=== PATIENT | female | born 1975 | race Caucasian/White ===

== ENCOUNTER 2018-09-19 08:12 | Day surgery (SDC) | payer OTHER ==
--- NOTE | 2018-09-19 07:35 | ANESTHESIA ---
Pre-Anesthesia VS, & Labs - Diagnosis R shoulder bursitis, rotator cuff tear, biceps tendinitis - Procedure R shoulder arthroscopy Vital Signs: Last Vital Signs Temp 36.2 C L 09/19/18 08:18 Pulse 86 09/19/18 08:18 Resp 16 09/19/18 08:18 BP 126/81 H 09/19/18 08:18 Pulse Ox 100 09/19/18 08:18 Height 5 ft 1 in Body Mass Index 27.3 Height 5 ft 1 in Weight (kg) 74.9 kg Body Mass Index 27.3 - NPO >8 hours - Is Patient ?: Waiver signed Home Medications and Allergies Home Medications: Ambulatory Orders Dextroamphetamine/Amphetamine [Adderall Xr 10 mg Capsule] 10 mg PO 09/09/18 Dextroamphetamine/Amphetamine [Adderall Xr 25 mg Capsule] 25 mg PO 09/09/18 Pantoprazole Sodium [Protonix] 20 mg PO BID 09/09/18 Rizatriptan Benzoate [Rizatriptan] 10 mg PO PRN 09/09/18 Dextroamphetamine/Amphetamine [Adderall Xr 10 mg Capsule] 10 mg PO 09/09/18 Dextroamphetamine/Amphetamine [Adderall Xr 25 mg Capsule] 25 mg PO 09/09/18 Pantoprazole Sodium [Protonix] 20 mg PO BID 09/09/18 Rizatriptan Benzoate [Rizatriptan] 10 mg PO PRN 09/09/18 Allergies/Adverse Reactions: Allergies Allergy/AdvReac Type Severity Reaction Status Date / Time aspirin Allergy Edema Verified 09/09/18 15:34 ibuprofen Allergy Edema Verified 09/09/18 15:34 meperidine HCl * Allergy Rash Verified 09/09/18 15:34 [From Demerol] Penicillins Allergy Unknown Verified 09/09/18 15:34 Anes History & Medical History - Anesthetic History Anesthesia Complications: reports: No previous complications Family history of Anesthesia Complications: Denies Family history of Malignant Hyperthermia: Denies - Medical History Cardiovascular: reports: None Pulmonary: reports: None Gastrointestinal: reports: GERD Urinary: reports: None Musculoskeletal: reports: Other Endocrine/Autoimmune: reports: None Skin: reports: None Smoking Status: Never smoker - Surgical History Eyes Ears Nose Throat (EENT): Tonsil/Adenoidectomy Gynecologic: Tubal ligation Orthopedic: Other Exam General: Alert, Oriented x3, Cooperative Dental: WNL Mouth Openin Fingerbreadth Neck Mobility: Normal Mallampati classification: II Thyromental Distance: 4-6 cm Respiratory: Lungs clear, Normal breath sounds Cardiovascular: Regular rate Neurological: Normal speech Mental/Cognitive Status: Alert/Oriented X3, Normal for patient Cognitive Status: Within normal limits Plan Anesthesia Type: General, Supraclavicular Block Regional Block: Per Surgeon's request for Post Op pain control Consent for Procedure(s) Verified and Reviewed: Yes Code Status: Attempt Resuscitation ASA classification: 1-Healthy patient Is this case an emergency?: No
[~2018-09-19 08:12] MED LIST: CLINDAMYCIN 600 MG/50 ML 50 ML IV ONE
[2018-09-19] MEDS ORDERED: EPINEPHrine 1 MG/ML AMP ONE (08:18)
[2018-09-19] MEDS ORDERED: BUPIVACAINE 0.25%-EPI 1:200000 PF 30 ML VIAL ONE (08:19)
[2018-09-19] MEDS ORDERED: LACTATED RINGERS 1,000 ML IV ONE (09:11)
[2018-09-19] MEDS ORDERED: oxyCODONE 5 MG TABLET PO PRN (09:47)
[2018-09-19] MEDS ORDERED: ONDANSETRON 4 MG/2 ML VIAL IVP PRN (09:47)
[2018-09-19] MEDS ORDERED: GLYCOPYRROLATE 1 MG/5 ML VIAL IVP ONE (10:30)
[2018-09-19] MEDS ORDERED: DEXAMETHASONE 4 MG/ML VIAL IVP ONE (10:30)
[2018-09-19] MEDS ORDERED: MIDAZOLAM 2 MG/2 ML VIAL IVP ONE (10:30)
[2018-09-19] MEDS ORDERED: ONDANSETRON 4 MG/2 ML VIAL IVP ONE (10:30)
[2018-09-19] MEDS ORDERED: fentaNYL 100 MCG/2 ML VIAL IVP ONE (10:30)
[2018-09-19] MEDS ORDERED: LIDOCAINE-MPF 2% 5 ML VIAL IM ONE (10:30)
[2018-09-19] MEDS ORDERED: NEOSTIGMINE 1 MG/1 ML 10 ML MDV IVP ONE (10:30)
[2018-09-19] MEDS ORDERED: PROPOFOL 200 MG/20 ML VIAL IVP ONE (10:30)
[2018-09-19] MEDS ORDERED: ROPIVACAINE 0.5% PF 20 ML AMPULE EP ONE (10:30)
[2018-09-19] MEDS ORDERED: BUPIVACAINE 0.25%-EPI 1:200000 PF 10 ML VIAL SUBQ ONE (12:29)
--- NOTE | 2018-09-19 13:05 | OPERATIVE REPORT ---
Operative Report - General Procedure Date: 09/19/18 Planned Procedure: Right shoulder arthroscopy, rotator cuff debridement, SAD, Open biceps Teno Pre-Op Diagnosis: Right shoulder SLAP tear/biceps tendinitis, impingement, rotator cuff frayi Procedure Performed: Right shoulder arthroscopy, rotator cuff debridement, subacromial decompression, open subpectoral biceps tenodesis Post Op Diagnosis: Right shoulder SLAP tear/biceps tendon tear, subacromial bursitis, articula - Procedure Note Primary Surgeon: PRASAD JAIN Secondary Surgeon: ALBA ERAZO Anesthesia Technique: General ET tube, Regional block Estimated Blood Loss (mL): 15 - Other Other Information/Narrative: DETAILED PROCEDURE: Right shoulder arthroscopy, rotator cuff debridement, subacromial decompression, open subpectoral biceps tenodesis IMPLANTS: Arthrex fibertak x1 POSTOPERATIVE PLAN: 0-2 weeks-Sling at all times. Pendulum exercises 5 times per day. 2-6 weeks-No active flexion of the biceps 6-8 weeks-Active flexion of biceps, light strengthening 8-12 weeks-Gradually increase strengthening focusing on rotator cuff and scapular stabilizers per protocol. 16 weeks and beyond-Introduce dynamic activities. EXAMINATION UNDER ANESTHESIA: ROM: Forward flexion 180, abduction 175, AB ER 90, AB IR 80 Anterior load and shift: 1+ Posterior load and shift: 1+ Inferior sulcus: Negative ARTHROSCOPIC FINDINGS: Rotator interval: Normal Biceps tendon & SLAP: Linear tear of the long head of the biceps tendon, type II SLAP tear with significant fraying Subscapularis: Intact Rotator Cuff: Undersurface fraying of the supraspinatus, and anterior part of the infraspinatus, thickness less than 50% of the footprint HAGL: None Labrum: Intact Glenoid Cartilage: Normal Humeral Head Cartilage: Normal, small area anterior to the bare area denuded of cartilage INDICATION FOR SURGERY: A 43-year-old female with right shoulder pain with activity, pain worse with overhead activity and activities such as throwing. Nonoperative managment failed to resolve symptoms. The risks, benefits, and alternatives were discussed. Risks included pain, bleeding, infection, damage to nearby structures, lack of symptom relief, implant complications, stiffness, need for further surgeries, DVT, PE, stroke, and even . He signed a written consent form. PROCEDURE IN DETAIL: The patient was met in the preoperative holding on the day of the procedure. Operative extremity was signed. Consent was verified. They desired to proceed. Regional anesthesia was obtained in the preoperative area. They were brought to the operating room and surrendered to anesthesia. Once general anesthesia was obtained they were placed in the beach chair position. A padded kidney pad was placed. The head was secured with the neck in a neutral position. A surgical timeout was held to confirm the patient procedure, identity, procedure, laterality, allergies, images, and antibiotics. All were in agreement we proceeded. A standard diagnostic arthroscopy was performed utilizing posterior and anterosuperior portals. The anterosuperior portal was created under direct visualization and localized with a spinal needle. The 7 mm cannula was placed anteriorly. The findings of the diagnostic arthroscopy can be found above. ARTHROSCOPIC SUBACROMIAL DECOMPRESSION: The instruments and cannula were then removed from the glenohumeral joint. The scope trocar was placed in the posterior portal and the acromion was felt. It was then inserted just under the acromion scraping along the bone until the CA ligament was felt. The scope trocar was then brought just lateral to the CA ligament and out the anterior i ncision. The cannula was then brought over the scope trocar arthroscope were inserted. The arthroscope was backed up until the shaver and arthroscope in the subacromial space. I then systemically debrided the bursa using a sucker shaver and radiofrequency ablation wand. A direct lateral incision was made and the bursectomy and decompression was completed through the lateral incision. All soft tissue was debrided from the underside of the acromion and the posterior edge of the CA ligament was lifted. Care was taken to keep the deltoid fascia intact. The rotator cuff was then evaluated and there was no full-thickness tear. Final images were taken. MINI OPEN BICEPS TENODESIS: A 5 cm incision was made near the axillary fold centered over the pectoralis major tendon. Electrocautery was used to obtain hemostasis. The fascia was opened with dissection scissors. Blunt digital dissection was used to identify the intertubercular groove just under the pectoralis major tendon. The long head of the biceps tendon was visualized within this interval. The short head of the biceps was retracted with my finger and the right angle was used to deliver the tendon of the long head of the b iceps out of the wound. A villanueva elevator was then used to debride all synovial tissue from the intertubercular groove. A fibertack was placed high within the groove. Both limbs of the fibertack were pulled on and it was well fixed. I then whipstitched the biceps tendon starting 2 cm proximal to the musculotendinous junction down to the musculotendinous junction and back up to the same 2 cm location with a single limb of the suture tack. The other suture was placed once through the tendon at the 2 cm location. I then cut all excess tendon off. The suture limb that was passed the single time was then pulled on and this reduced the tendon nicely into the groove. The elbow was fully straightened and there was no excess tension on the repair site. I then tied 7 reverse half hitches alternating to secure the tendon in its place. The wound was then irrigated copiously. The portal sites were then closed with 3-0 Monocryl buried. Any open incisions were closed with 2-0 Vicryl in the dermis and a running 3-0 Monocryl in the skin. Mastisol and Steri-Strips were applied. A sterile dressing and a sling was applied. A sling was placed. The patient was awakened and transferred to the recovery room.
[2018-09-19] MEDS: HYDROmorphone 1 MG/ML CARPUJECT ONE ×2 (13:07→13:14)
[2018-09-19] MEDS ORDERED: oxyCODONE 5 MG TABLET ONE (14:23)
[2018-09-19] MEDS ORDERED: ONDANSETRON 4 MG/2 ML VIAL ONE (14:26)
[2018-09-19 15:57] VITALS: BP 103/73
== END 2018-09-19 08:13 | disposition home or self-care (01) ==
LOC: SDS 08:12
PROVIDERS: ATTEND Orthopaedic Surgery
PROC: 0LS14ZZ Reposition Right Shoulder Tendon, Percutaneous Endoscopic Approach (ICD-10-PCS; 2018-09-19)
PROC: 0RNJ4ZZ Release Right Shoulder Joint, Percutaneous Endoscopic Approach (ICD-10-PCS; principal; 2018-09-19 09:30)
DX: M75.51 Bursitis of right shoulder (principal); S43.431A Superior glenoid labrum lesion of right shoulder, initial encounter; S46.111A Strain of muscle, fascia and tendon of long head of biceps, right arm, initial encounter
CPT/HCPCS: 29822; 29828; A9270; C1713; J1170; J7120